=== PATIENT | female | born 1990 | race Caucasian/White ===

== ENCOUNTER 2019-12-01 22:33 | Inpatient (IN) | payer MEDICAID, SELFPAY ==
[~2019-12-01] VITALS: Ht 167.6 cm; Wt 72.6 kg
--- NOTE | 2019-12-01 22:33 | NUR ---
Patient BIBA ALS accompanied by LACoFD, transferred to bed 1. RN evaluating patient at bedside.
[2019-12-01 22:47] VITALS: BP 134/67
--- NOTE | 2019-12-01 23:00 | NUR ---
PT BIB FIRE/DIESEL LUBE TECH AFTER 911 CALL PLACED FOR UNRESPONSIVE FEMALE IN [facility]. PT PRESENTS VERY PARANOID, FRIGHTENED, AND TEARFUL AT TIMES. CURRENTLY NONVERBAL. NO TRAUMA NOTED TO PT. PROBABLE DRUG INTOXICATION/OD. V/S STABLE, RESPIRATIONS REGULAR AND UNLABORED O2 SAT 98%. V/S WNL, PUPILS 3MM AND SLUGGISH. BED IN LOWEST POSITION, SIDE RAIL UP X 1. MED HX - UNKNOWN ALLERGIES - UNKNOWN
--- NOTE | 2019-12-01 23:35 | NUR ---
Telepsychiatry consultation ordered as requested by Dr. Liu.
[2019-12-02 00:16] LABS: BASOPHILS # (AUTO) 0.1 K/uL (0.00-0.22); EOSINOPHILS # (AUTO) 0.1 K/uL (0-0.4); EOSINOPHILS % (AUTO) 1.4 % (0.0-4.0); HEMOGLOBIN 13.7 g/dL (12.0-16.0); LYMPHOCYTES # (AUTO) 1.7 K/uL (2.5-16.5); LYMPHOCYTES % (AUTO) 23.3 % (20.5-51.1); MEAN CORPUSCULAR HEMOGLOBIN 31 pg (27-31); MEAN CORPUSCULAR HGB CONC 34 g/dL (33-37); MEAN CORPUSCULAR VOLUME 91.2 fL (80-94); MONOCYTES # (AUTO) 0.8 K/uL (0.8-1.0); MONOCYTES % (AUTO) 10.6 % (1.7-9.3); NEUTROPHILS # (AUTO) 4.7 K/uL (1.8-7.7); NEUTROPHILS % (AUTO) 63.7 % (42.2-75.2); PLATELET COUNT (AUTO) 219 K/uL (140-450); RED BLOOD CELL COUNT(AUTO) 4.38 MIL/uL (4.20-5.40); RED CELL DISTRIBUTION WIDTH 13.2 % (11.6-13.7); WHITE BLOOD COUNT (AUTO) 7.4 K/uL (4.8-10.8)
--- NOTE | 2019-12-02 00:23 | NUR ---
PT TO CT SCAN VIA WHEELCHAIR
[2019-12-02 00:36] LABS: ANION GAP 16.4 (8-16); ASPARTATE AMINOTRANSFERASE 16 U/L (15-37); CARBON DIOXIDE 27.3 mmol/L (21-32); CHLORIDE 102 mmol/L (98-107); CREATININE 0.8 mg/dL (0.6-1.3); GFR ARICAN-AMERICAN 112 mL/min (>90); GLUCOSE 102 mg/dL (74-106); SODIUM SERUM 143 mmol/L (136-145); TOTAL BILIRUBIN 1.5 mg/dL (0.0-1.0); UREA NITROGEN, BLOOD 11 mg/dL (7-18)
[2019-12-02 00:37] LABS: POTASSIUM 2.7 mmol/L (3.5-5.1)
--- NOTE | 2019-12-02 00:38 | NUR ---
RECIVED REPORT FROM ANJELICA IN LAB. POTASSIUM 2.7. SOLA MADE AWARE.
--- NOTE | 2019-12-02 01:40 | NUR ---
COVID SWAB DONE AND TAKEN TO LAB
--- NOTE | 2019-12-02 01:41 | NUR ---
PT MORE ALERT NOW, ABLE TO ANSWER QUESTIONS AND FOLLOW COMMANDS. PT STATES SHE IS HOMELESS AND HAS BEEN STAYING IN THE [place] WHERE SHE WAS FOUND BY PARAMEDICS. PT DENIES ANY DRUG USE. DENIES MEDICAL HISTORY BUT STATES SHE HAS PTSD. PT URINATED IN THE BED, CLOTHES CHANGED, PT CLEANED AND PLACED IN A GOWN. SANDWICH AND JUICE PROVIDED TO PT. PT WAS ABLE TO PROVIDE HER , SUPPLIED TO ER ADMIN. PT AWARE I NEED A UA, STATES SHE IS NOT ABLE TO GO AT THIS TIME. UA CUP AT BEDSIDE
--- NOTE | 2019-12-02 02:42 | NUR ---
PT SITTING QUIETLY ON GURNEY NO SIGNS OF DISTRESS, STILL UNABLE TO PROVIDE UA
--- NOTE | 2019-12-02 03:10 | NUR ---
DR WOOD FROM TELE-MEDICINE SPOKE WITH PATIENT AND WANTS TO PLACE PT ON A 5150 HOLD FOR GRAVE DISABILITY.
--- NOTE | 2019-12-02 03:50 | NUR ---
[place] [employer] at bedside.
--- NOTE | 2019-12-02 04:39 | NUR ---
Patient transferred to bed 4 for further care. RN re-evaluating patient at bedside.
--- NOTE | 2019-12-02 04:57 | NUR ---
PT WAS ABLE TO PROVIDE A URINE SPECIMEN. URINE COLLECTED AND TAKEN TO LAB
[2019-12-02 05:05] LABS: APPEARANCE,URINE CLEAR (CLEAR); BILIRUBIN,URINE NEGATIVE (NEGATIVE); BLOOD, URINE NEGATIVE (NEGATIVE); COLOR,URINE YELLOW (YELLOW); LEUKOCYTE ESTERASE ,URINE TRACE (NEGATIVE); NITRITE, URINE NEGATIVE (NEGATIVE); UGLUCOSE NEGATIVE (NEGATIVE)
[2019-12-02 05:29] LABS: RBC,URINE 0-5 /HPF (0-5); WBC,URINE 0-5 /HPF (0-5)
[2019-12-02 05:32] LABS: BARBITURATE, URINE NEGATIVE ng/ml (NEG <=200); BENZODIAZEPINE, URINE NEGATIVE ng/mL (NEG <=200); CANNABINOID, URINE POSITIVE ng/mL (NEG <=50); COCAINE, URINE NEGATIVE ng/mL (NEG <=300); OPIATE, URINE NEGATIVE ng/mL (NEG <=2000); PHENCYCLIDINE SCREEN,URINE NEGATIVE ng/mL (NEG <=25)
--- NOTE | 2019-12-02 05:45 | NUR ---
PTS BELONGINGS GIVEN TO SECURTIY (BRA, UNDERWARE, JEANS, SHIRT, AND SHOES) CLOTHING IS URINE SOAKED
--- NOTE | 2019-12-02 05:53 | NUR ---
PT SLEEPING, NO SIGNS OF DISTRESS NOTED, RESPIRATIONS REGULAR AND UNLABORED. PT REMAINS ON 15 MIN CHECKS.
--- NOTE | 2019-12-02 06:26 | NUR ---
Patient transferred to bed 5 for further care. RN re-evaluating the patient at bedside.
--- NOTE | 2019-12-02 07:11 | NUR ---
received report from john santizo , pt sleeping in be side rails up x2 and lock.
--- NOTE | 2019-12-02 07:13 | NUR ---
REPORT GIVEN TO ROLANDA MA
--- NOTE | 2019-12-02 07:33 | NUR ---
pt awake aox3 , afibrile , no complaints at this time.
--- NOTE | 2019-12-02 07:40 | NUR ---
pt verbalize dont want to eat food and states she not hungry .
--- NOTE | 2019-12-02 08:06 | NUR ---
pt awake in bed offered food stated she not hungry and wanted breakfast at bedside .
--- NOTE | 2019-12-02 09:15 | NUR ---
pt awake in bed staring in the ceiling with no complaint.side rails up x2 at lowest position.
--- NOTE | 2019-12-02 09:44 | NUR ---
FACILITIES CONTACTED BY [facility]: [facility]- [facility]- [facility]- [place]- [place]- [place]- [place]-
[2019-12-02] MEDS ORDERED: MAG SULF 2000 MG/WATER PREMIX 50 ML IV ONE (09:45)
[2019-12-02] MEDS ORDERED: POTASSIUM CHLORIDE 10 MEQ TABER PO ONE (09:45)
--- NOTE | 2019-12-02 10:11 | NUR ---
pt hook to registered nurse cardiac telemetry. pt awake in bed eating breakfast . side rails up x 1 and lock.
--- NOTE | 2019-12-02 10:33 | NUR ---
pt states she does not take any home medications
--- NOTE | 2019-12-02 12:07 | NUR ---
PT SITTING IN BED COMFORTABLY , SITTER AT BEDSIDE.
--- NOTE | 2019-12-02 13:29 | NUR ---
SITTER AT BEDSIDE .
[2019-12-02] MEDS ORDERED: ONDANSETRON 4 MG/2 ML VIAL IM/IVP PRN (13:40)
[2019-12-02] MEDS ORDERED: ACETAMINOPHEN 325 MG TAB PO PRN (13:40)
[2019-12-02] MEDS ORDERED: DOCUSATE SODIUM 100 MG GELCAP PO PRN (13:40)
--- NOTE | 2019-12-02 13:56 | NUR ---
PER JUANITA MARIE SUP. - NO [facility] BEDS AVAILABLE AT THIS TIME
--- NOTE | 2019-12-02 13:58 | NUR ---
XRAY AT BEDSIDE.
--- NOTE | 2019-12-02 13:59 | NUR ---
LABS AT BEDSIDE.
--- NOTE | 2019-12-02 14:05 | NUR ---
DR LAZARO AT BEDSIDE EVALUATING PT.
[2019-12-02 14:36] LABS: FREE T4 (FREE THYROXINE) 1.5 ng/dL (0.76-1.46); MAGNESIUM 2.2 mg/dL (1.8-2.4); PHOSPHORUS 4.1 mg/dL (2.5-4.9); THYROID STIMULATING HORMONE 2.24 uIU/mL (0.34-3.74)
[2019-12-02 15:20] LABS: ANION GAP 15.6 (8-16); CARBON DIOXIDE 26.2 mmol/L (21-32); CREATININE 0.8 mg/dL (0.6-1.3); POTASSIUM 3.8 mmol/L (3.5-5.1)
[2019-12-02 15:25] LABS: PROTHROMBIN TIME 10.7 secs (10.8-13.4)
--- NOTE | 2019-12-02 15:41 | NUR ---
DR LAZARO AT BEDSIDE REEVALUATING PT.
--- NOTE | 2019-12-02 16:50 | NUR ---
PER JUANITA MARIE SUP. - ROOMS & NURSES ARE AVAILABLE BUT PT WILL REMAIN M/S HOLD UNTIL FURTHER NOTICE DUE TO LACK OF RNS SCHEDULED FOR INSPECTOR AND CLERK.
[2019-12-02] MEDS: NACL 0.9% 1,000 ML IV SCH (17:07)
--- NOTE | 2019-12-02 19:17 | NUR ---
report given to nessa lopez with stable v/s.
--- NOTE | 2019-12-02 19:17 | NUR ---
REPORT RECEIVED FROM FIFI RN, PT ALERT AND AWAKE, BREATHING EVEN AND UNLABORED
--- NOTE | 2019-12-02 19:24 | NUR ---
PT SCREAMING AT STAFF, PULLED OUT HER IV. ERMD MADE AWARE
--- NOTE | 2019-12-02 19:30 | NUR ---
PT CALMED DOWN, GOWN CHANGED BECAUSE OF BLOOD FROM IV. SITTER REMAINS AT BEDSIDE, WILL CONTINUE TO MONITOR
--- NOTE | 2019-12-02 20:29 | NUR ---
PT RESTING WTIH EYES CLOSED, BREATHING EVEN AND UNLABORED
--- NOTE | 2019-12-02 21:13 | NUR ---
PT RESTING WITH EYES CLOSED, BREATHING EVEN AND UNLABORED
--- NOTE | 2019-12-02 21:56 | NUR ---
[facility] has sent out intake paperwork to the following facilities for bed placement. [facility]/ [facility]/ [facility]/ [facility]/ [place]/ [place] No bed availability through the evening, will keep facility informed of any updates.
--- NOTE | 2019-12-02 22:51 | NUR ---
PT ALERT AND AWAKE, BREATHING EVEN AND UNLABORED
--- NOTE | 2019-12-02 23:08 | NUR ---
PT WILL BE ADMITTED TO MED/SURG. PER JUANITA JULIO PT WILL BE AN ER HOLD FOR THE MEANTIME.
--- NOTE | 2019-12-02 23:52 | NUR ---
PT RESTING WITH EYES CLOSED, BREATHING EVEN AND UNLABORED. WILL CONTINUE TO MONITOR
--- NOTE | 2019-12-03 01:34 | NUR ---
PT RESTING WITH EYES CLOSED, BREATHING EVEN AND UNLABORED
--- NOTE | 2019-12-03 03:30 | NUR ---
PT RESTING WITH EYES CLOSED, BREATHING EVEN AND UNLABORED
--- NOTE | 2019-12-03 05:00 | NUR ---
PT RESTING WITH EYES CLOSED, BREATHING EVEN AND UNLABORED
--- NOTE | 2019-12-03 06:21 | NUR ---
Will endorse to next shift
[2019-12-03] MEDS: NACL 0.9% 1,000 ML IV SCH ×2 (06:33→22:57)
--- NOTE | 2019-12-03 06:49 | NUR ---
PT RESTING WITH EYES CLOSED, BREATHING EVEN AND UNLABORED
[2019-12-03 07:18] LABS: BASOPHILS % (AUTO) 0.2 % (0.0-2.0); EOSINOPHILS # (AUTO) 0.2 K/uL (0-0.4); EOSINOPHILS % (AUTO) 2.4 % (0.0-4.0); HEMATOCRIT 39.5 % (36-48); HEMOGLOBIN 13.3 g/dL (12.0-16.0); LYMPHOCYTES # (AUTO) 1.3 K/uL (2.5-16.5); LYMPHOCYTES % (AUTO) 16.1 % (20.5-51.1); MEAN CORPUSCULAR HEMOGLOBIN 31 pg (27-31); MEAN CORPUSCULAR HGB CONC 34 g/dL (33-37); MEAN CORPUSCULAR VOLUME 92.3 fL (80-94); MONOCYTES # (AUTO) 0.5 K/uL (0.8-1.0); MONOCYTES % (AUTO) 6.2 % (1.7-9.3); NEUTROPHILS # (AUTO) 5.9 K/uL (1.8-7.7); NEUTROPHILS % (AUTO) 75.1 % (42.2-75.2); PLATELET COUNT (AUTO) 224 K/uL (140-450); RED BLOOD CELL COUNT(AUTO) 4.28 MIL/uL (4.20-5.40); RED CELL DISTRIBUTION WIDTH 13.2 % (11.6-13.7); WHITE BLOOD COUNT (AUTO) 7.8 K/uL (4.8-10.8)
[2019-12-03 07:22] LABS: ANION GAP 11.9 (8-16); CARBON DIOXIDE 27.5 mmol/L (21-32); CREATININE 0.8 mg/dL (0.6-1.3); POTASSIUM 3.4 mmol/L (3.5-5.1)
[2019-12-03 07:28] LABS: MAGNESIUM 2.1 mg/dL (1.8-2.4); PHOSPHORUS 3.7 mg/dL (2.5-4.9)
[2019-12-03 07:45] VITALS: BP 121/77
--- NOTE | 2019-12-03 07:45 | NUR ---
RECEIVED PATIENT FROM ED NURSE FOR ADMISSION AND CONTINUITY OF CARE. PATIENT IS AAOX3. MONGOLIAN SPEAKING. RESPIRATIONS EVEN AND UNLABORED, ROOM AIR. VISIBLE CHEST RISE AND FALL NOTED. MED-SURG. ABDOMEN SOFT AND NONTENDER. REGULAR DIET. SKIN WARM, DRY, AND INTACT. IV IN THE R AC G20, SALINE LOCK. WILL RUN NS AT 60 ML/HR PER MD ORDER. PATIENT IS AMBULATORY. UNIVERSAL FALL PRECAUTION. ON A 5150 HOLD. 1:1 SITTER. BED IN LOW POSITION. CALL LIGHT IS WITHIN REACH. WILL CONTINUE TO MONITOR.
--- NOTE | 2019-12-03 07:50 | NUR ---
[facility] NARES SWAB COLLECTED. VS: BP IS 121/77, HR 79, RESP 16 UNLABORED, TEMP 97.6, O2SAT 98%. DENIES PAIN. DENIES SOB. IVF NS 1000 ML AT 60 ML/HR STARTED RUNNING.
--- NOTE | 2019-12-03 07:51 | NUR ---
Patient will be admitted to care of [facility]. AdmitTed to MED SURG. Will go to room 129A. Belongings list completed. Report to PRINCESS MA.
--- NOTE | 2019-12-03 08:09 | NUR ---
[facility] still working on placement at this time. Packets have been referred to the following facilities: [facility]
--- NOTE | 2019-12-03 09:31 | NUR ---
HUNG ROCEPHIN FOR UTI VIA IVPB. EXPLAINED MEDICATION. PATIENT IS RESTING IN BED. NO SIGNS OF DISTRESS NOTED. WILL CONTINUE TO MONITOR.
--- NOTE | 2019-12-03 10:29 | NUR ---
PATIENT IS YELLING AND WALKING AROUND THE ROOM. 1:[address]
--- NOTE | 2019-12-03 13:12 | NUR ---
ENCOURAGED PATIENT TO EAT LUNCH. PATIENT IGNORED AND WENT BACK TO SLEEP. 1:[address]
--- NOTE | 2019-12-03 14:38 | NUR ---
GIVEN K-DUR 40 MEQ PO FOR POTASSIUM LEVEL 3.4. GIVEN MEDICATION EDUCATION. PATIENT TOLERATED WELL.
--- NOTE | 2019-12-03 14:46 | NUR ---
PATIENT STATED SHE IS COLD. COVERED WITH BLANKET. TEMPERATURE: 98.3. NO FEVER. SET UP LUNCH TRAY. PATIENT STATED SHE WILL EAT
[2019-12-03] MEDS ORDERED: POTASSIUM CHLORIDE 10 MEQ TABER PO SCH (15:00)
[2019-12-03 16:00] VITALS: BP 116/79
--- NOTE | 2019-12-03 17:25 | NUR ---
PATIENT IS SLEEPING COMFORTABLY. NO SIGNS OF DISTRESS NOTED. BED IN LOW POSITION. CALL LIGHT IS WITHIN REACH. WILL CONTINUE TO MONITOR
--- NOTE | 2019-12-03 19:12 | NUR ---
ENDORSED PATIENT TO THE PRINTED CIRCUIT DESIGNER NURSE FOR CONTINUITY OF CARE. PATIENT IS ASLEEP. NO SIGNS OF DISTRESS NOTED. IS IN STABLE CONDITION.
--- NOTE | 2019-12-03 19:13 | NUR ---
RECEIVED BEDSIDE REPORT FROM DAY SHIFT NURSE. PATIENT IS AAOX3. KHMER SPEAKING. RESPIRATIONS EVEN AND UNLABORED, ROOM AIR. VISIBLE CHEST RISE AND FALL NOTED. ABDOMEN SOFT AND NONTENDER. SKIN WARM, DRY, AND INTACT. IV SITE ON THE R AC G20, PATENT, INTACT, AND ASYMPTOMATIC. ON A 5150 HOLD. 1:1 SITTER. BED IN LOW POSITION. CALL LIGHT IS WITHIN REACH. WILL CONTINUE TO MONITOR.
[2019-12-03] MEDS: OLANZapine 5 MG TAB PO SCH (21:12)
--- NOTE | 2019-12-03 21:12 | NUR ---
GIVEN OLANZAPINE MD ORDERED. PT TOLERATED WELL.
--- NOTE | 2019-12-03 22:41 | NUR ---
PT SLEEPING IN BED COMFORTABLY. NO ACUTE DISTRESS NOTED.
[2019-12-04] VITALS: BP 103/58
--- NOTE | 2019-12-04 00:01 | NUR ---
VS CHECKED, WITHIN PT'S BASELINE. WILL CONTINUE TO MONITOR.
--- NOTE | 2019-12-04 02:38 | NUR ---
PT SLEEPING IN BED COMFORTABLY. NO ACUTE DISTRESS NOTED.
--- NOTE | 2019-12-04 04:28 | NUR ---
PT SLEEPING IN BED COMFORTABLY. NO ACUTE DISTRESS NOTED.
--- NOTE | 2019-12-04 07:15 | NUR ---
RECEIVED REPORT FROM ASSEMBLER DC FIELD YOKE NURSE. PATIENT LYING DOWN IN BED SLEEPING, AROUSABLE BY VOICE. NO DISTRESS NOTED. DENIES ANY PAIN. AAOX2, CALM, COOPERATIVE, SKIN COLOR APPROPRIATE TO ETHNICITY, WARM TO TOUCH. SKIN INTACT. RESPIRATIONS EVEN, UNLABORED, ON ROOM AIR. IV SITE INTACT, PATENT, AND INFUSING IVF PER MD ORDERS. REVIEWED PLAN OF CARE WITH PATIENT. PATIENT VERBALIZED UNDERSTANDING. SAFETY MEASURES IN PLACE, CALL LIGHT WITHIN REACH. WILL CONTINUE TO MONITOR.
[2019-12-04 08:00] VITALS: BP 114/74
[2019-12-04 08:05] LABS: BASOPHILS # (AUTO) 0.1 K/uL (0.00-0.22); EOSINOPHILS # (AUTO) 0.2 K/uL (0-0.4); EOSINOPHILS % (AUTO) 3.3 % (0.0-4.0); HEMATOCRIT 38.1 % (36-48); HEMOGLOBIN 12.7 g/dL (12.0-16.0); LYMPHOCYTES # (AUTO) 1.4 K/uL (2.5-16.5); LYMPHOCYTES % (AUTO) 21.8 % (20.5-51.1); MEAN CORPUSCULAR HEMOGLOBIN 31 pg (27-31); MEAN CORPUSCULAR HGB CONC 33 g/dL (33-37); MEAN CORPUSCULAR VOLUME 93.4 fL (80-94); MONOCYTES # (AUTO) 0.5 K/uL (0.8-1.0); NEUTROPHILS # (AUTO) 4.3 K/uL (1.8-7.7); NEUTROPHILS % (AUTO) 65.9 % (42.2-75.2); PLATELET COUNT (AUTO) 203 K/uL (140-450); RED BLOOD CELL COUNT(AUTO) 4.08 MIL/uL (4.20-5.40); RED CELL DISTRIBUTION WIDTH 13.2 % (11.6-13.7); WHITE BLOOD COUNT (AUTO) 6.5 K/uL (4.8-10.8)
[2019-12-04 08:19] LABS: ANION GAP 10.5 (8-16); CARBON DIOXIDE 26.4 mmol/L (21-32); CREATININE 0.7 mg/dL (0.6-1.3); POTASSIUM 3.9 mmol/L (3.5-5.1)
[2019-12-04 08:21] LABS: MAGNESIUM 1.9 mg/dL (1.8-2.4); PHOSPHORUS 3.6 mg/dL (2.5-4.9)
--- NOTE | 2019-12-04 09:15 | NUR ---
PATIENT HAS BEEN SCREENED AND CATEGORIZED LOW NUTRITION RISK. PATIENT WILL BE SEEN WITHIN 7 DAYS OF ADMISSION. 12/09/[address]
--- NOTE | 2019-12-04 09:26 | NUR ---
SCHEDULED MEDICATIONS DUE GIVEN. WILL CONTINUE TO MONITOR.
--- NOTE | 2019-12-04 11:11 | NUR ---
DISCHARGE PLANNING: THIS IS A 29 Y/O HOMELESS FEMALE, BIBA DUE TO BREAKDOWN. PATIENT WAS FOUND ACTING ODDLY IN THE COURTYARD OF THE [employer]. INITIAL DIAGNOSIS OF GRAVE DISABILITY. CURRENT LABS INCLUDE WBC 6.5, H/H 12.7/38.1, NA/K 140/3.9, BUN/CREA 8/0.7. COVID TEST PENDING. UDS SHOWED POSITIVE FOR AMPHETAMINES AND CANNABINOIDS. ON ZYPREXA. PSYCH CONSULT IN PLACE. FOR IN PATIENT PSYCH PLACEMENT. Addendum: 12/04/19 at 1233 by Sarah Barksdale CM [facility] [employer] AT [facility], THEY ARE STILL WORKING ON FINDING PLACEMENT FOR THE PATIENT. Addendum: 12/04/19 at 1445 by Sarah Barksdale CM [facility], MOST OF THE PSYCHE FACILITIES REQUIRE [address] GOINS MADE AWARE. Addendum: 12/05/19 at 1409 by Sarah Barksdale DISCUSSED DC PLAN WITH DR BAIRD. INFORMED HIM THAT THERE IS NO ACCEPTING FACILITY YET. HE STATED HE WILL EVALUATE THE PATIENT AND WILL LET ME KNOW THE PLAN. Addendum: 12/05/19 at 1416 by Sarah Barksdale CM RECEIVED A CALL FROM DR. BAIRD THAT HE CLEARED THE PATIENT AND WILL DISCHARGE. HE STATED TO PROVIDE HOMELESS/PRISON RESOURCES TO THE PATIENT. RESOURCES PROVIDED TO THE PRIMARY RN.
--- NOTE | 2019-12-04 11:30 | NUR ---
PATIENT SITTING IN BED WITH LUNCH TRAY IN FRONT. NO DISTRESS NOTED. CONDITION UNCHANGED. WILL CONTINUE T OMONITOR
--- NOTE | 2019-12-04 12:58 | NUR ---
DATA COLLECTION TECHNICIAN NOTE: Patient's Orientation Person Situation Place Time Information Provided By PATIENT Comments SW WAS UNABLE TO MEET PATIENT AT BEDSIDE DUE TO MEDICAL CONDITION. ASSESSMENT WAS COMPLETED TELEPHONICALLY. Composition Mixer, Realtionship and Phone Number SUZY DIAZ [phone] [facility] Power of Industrial Safety And Health Specialist No Does Patient Have a POLST No Identifying Problems Homelessness/Housing Substance Abuse Is A Social Work Consult Needed No Mandate Report Filed No Explanation Of Identifying Problems PATIENT IS A 29-YEAR-OLD FEMALE ADMITTED FOR GRAVE DISABILITY. PATIENT HAS NO PERTINENT PMHX. PATIENT REFUSED SUBSTANCE ABUSE RESOURCES BUT AGREED TO HOMELESS RESOURCES. HOMELESS RESOURCES WAS PROVIDED TO PATIENT AND WAS LEFT IN DISCHARGE PACKET. PATIENT STATED SHE WAS LAST AT A SOBER LIVING HOUSE, BUT REFUSES TO GO BACK. PATIENT STATED SHE HAS BEEN HOMELESS FOR ONE MONTH. PATIENT STATED SHE WOULD MAKE LIVING ARRANGEMENTS USING HOMELESS RESOURCES PROVIDED. Admitted From HOMELESS Prior Resources/Services Used In Last 12 Months No Prior Resources Used Prior DME No Prior DME Used Living Situation Homeless Patient Had Caregiver No Home Support No Caregiver Issues Financial Issues No Known Financial Issue Referral To The Financial Counselor Needed No Factors/Needs Psych Placement/Referral Jail/Homeless Pt/Rep Participated In Discharge Plan Yes Patient/Family Agress With Discharge Plan Yes Discharge Plan Comments TENTATIVE DISCHARGE PLAN IS FOR PATIENT TO BE DISCHARGED TO PSYCHIATRIC FACILITY PENDING PATIENT'S PSYCH EVAL. DC Plan Status Initiated
--- NOTE | 2019-12-04 14:00 | NUR ---
PATIENT LYING DOWN IN BED SLEEPING, AROUSABLE BY VOICE. NO DISTRESS NOTED. CONDITION UNCHANGED. WILL CONTINUE TO MONITOR.
--- NOTE | 2019-12-04 14:02 | NUR ---
Called the following facilities: [facility] s/w Leonora, not accepting any referrals from out of [facility] s/w Maurisio, no beds [place] [facility] [place], no answer, left voicemail [facility] s/w Gloria, will fax packet once [phone] is received Hoang Hernandez no answer. Left voicemail on [employer] machine for a call back [facility] s/w Alissa no available beds [facility] s/w Ana Paula no available beds
[2019-12-04 16:00] VITALS: BP 107/67
--- NOTE | 2019-12-04 17:30 | NUR ---
PATIENT WATCHING TV. NO DISTRESS NOTED. CONDITION UNCHANGED. WILL CONTINUE TO MONITOR
--- NOTE | 2019-12-04 19:04 | NUR ---
Packet faxed for [facility] and [facility] for wait list
--- NOTE | 2019-12-04 19:18 | NUR ---
GAVE REPORT TO FIRE INSPECTOR NURSE FOR CONTINUITY OF CARE. PATIENT IN STABLE CONDITION.
--- NOTE | 2019-12-04 19:30 | NUR ---
RECEIVED PT FROM PRASAD RN ,PT [phone] HOLD FOR GRAVELY DISABLE NOT AGITATION NOTED AT THIS TIME PT QUIET INITIAL ASSESSMENT DONE
[2019-12-04] MEDS: OLANZapine 5 MG TAB PO SCH (21:00)
--- NOTE | 2019-12-04 22:00 | NUR ---
pt has been monitoring close 5150 hold sitter at side not distress noted ambulatory
[2019-12-04] MEDS: NACL 0.9% 1,000 ML IV SCH (22:57)
[2019-12-05] VITALS: BP 103/64
--- NOTE | 2019-12-05 01:00 | NUR ---
pt sleeping well sitter at side not distress noted on continue mo;nitoring
--- NOTE | 2019-12-05 04:00 | NUR ---
sponge bath given linen changed not distress noted
[2019-12-05 06:07] LABS: CHLAMYDIA TRACHOMATIS AMP DNA Negative (Negative)
--- NOTE | 2019-12-05 06:36 | NUR ---
pt sleeping at this time sitter at side, pt will be endorsed to day shift nurse for continue of care
--- NOTE | 2019-12-05 07:28 | NUR ---
RECEIVED PATIENT FROM NIGHT NURSE. PATIENT IS SLEEPING. RESP EVEN AND UNLABORED ON ROOM AIR. SAFETY PRECAUTION OBSERVED. 1:1 SITTER BY BEDSIDE. NO NOTED DISTRESS. WILL CONTINUE TO MONITOR.
[2019-12-05 08:00] VITALS: BP 105/72
[2019-12-05 08:46] LABS: BASOPHILS % (AUTO) 0.6 % (0.0-2.0); EOSINOPHILS # (AUTO) 0.3 K/uL (0-0.4); EOSINOPHILS % (AUTO) 4.7 % (0.0-4.0); HEMATOCRIT 37.8 % (36-48); HEMOGLOBIN 12.8 g/dL (12.0-16.0); LYMPHOCYTES # (AUTO) 1.5 K/uL (2.5-16.5); LYMPHOCYTES % (AUTO) 26.7 % (20.5-51.1); MEAN CORPUSCULAR HEMOGLOBIN 31 pg (27-31); MEAN CORPUSCULAR HGB CONC 34 g/dL (33-37); MEAN CORPUSCULAR VOLUME 92.7 fL (80-94); MONOCYTES # (AUTO) 0.4 K/uL (0.8-1.0); MONOCYTES % (AUTO) 7.8 % (1.7-9.3); NEUTROPHILS # (AUTO) 3.3 K/uL (1.8-7.7); NEUTROPHILS % (AUTO) 60.2 % (42.2-75.2); PLATELET COUNT (AUTO) 204 K/uL (140-450); RED BLOOD CELL COUNT(AUTO) 4.08 MIL/uL (4.20-5.40); RED CELL DISTRIBUTION WIDTH 13.3 % (11.6-13.7); WHITE BLOOD COUNT (AUTO) 5.5 K/uL (4.8-10.8)
[2019-12-05 08:54] LABS: MAGNESIUM 1.9 mg/dL (1.8-2.4); PHOSPHORUS 3.7 mg/dL (2.5-4.9)
--- NOTE | 2019-12-05 08:54 | NUR ---
Received followup call from [facility], states they will hold packet but have no openings today. Will continue to look for placement. Will contact with any updates.
[2019-12-05 08:59] LABS: CARBON DIOXIDE 26.7 mmol/L (21-32); CREATININE 0.8 mg/dL (0.6-1.3); POTASSIUM 3.7 mmol/L (3.5-5.1)
--- NOTE | 2019-12-05 09:30 | NUR ---
MAKING ROUNDS. PATIENT IS RESTING COMFORTABLY IN BED. ALERT AND ORIENTED X4. DENIES OF PAIN AT THIS TIME. RESP EVEN AND UNLABORED ON RA. RAC 20 TKO WITH NS 10ML. PATIENT DENIES OF SUICIDAL IDEATIONS AT THIS TIME. 1:1 SITTER AT BEDSIDE. PATIENT ENCOURAGED TO ASK FOR HELP NEEDED. PATIENT VERBALIZED UNDERSTANDING. WILL CONTINUE TO MONITOR.
[2019-12-05 11:09] LABS: RAPID PLASMA REAGIN NON-REACTIVE (Non Reactiv)
--- NOTE | 2019-12-05 12:50 | NUR ---
PATIENT IS RESTING COMFORTABLY IN BED. NO NOTED DISTRESS. RESP EVEN AND UNLABORED ON ROOM AIR. 1:1 SITTER BY BEDSIDE. WILL CONTINUE TO MONITOR.
[2019-12-05 16:00] VITALS: BP 112/87
--- NOTE | 2019-12-05 16:10 | NUR ---
DR BAIRD DISCONTINUE 5150 HOLD. PATIENT IS ABLE TO SHOWER PER DR GOINS. PATIENT AMBULATED TO THE SHOWER WITH STEADY GAIT. NO NOTED DISTRESS. WILL CONTINUE TO MONITOR.
--- NOTE | 2019-12-05 17:00 | NUR ---
TRANSFER CARE TO [facility]. PATIENT IN STABLE CONDITION.
--- NOTE | 2019-12-05 18:12 | NUR ---
GIVEN DISCHARGE INSTRUCTIONS AND BUS PASS. DC IV SITE.
--- NOTE | 2019-12-05 18:15 | NUR ---
PATIENT STATED SHE WILL BE GOING TO HER MOTHER'S HOUSE. BUS PASS ON HAND.
--- NOTE | 2019-12-05 18:18 | NUR ---
DISCONTINUED IV SITE AND REMOVED ID BAND. FELISA MILAN, WALKED PATIENT TO THE LOBBY. PATIENT IS IN STABLE CONDITION
== END 2019-12-05 18:20 | disposition home or self-care (01) | DRG 776 ==
LOC: EEVIPCON 22:33 → MED 22:33 → EDBD 22:33 → MTU 12-02 13:37 → MMU 12-03 05:58
PROVIDERS: ADMIT General Practice; ATTEND General Practice
DX: F19.10 Other psychoactive substance abuse, uncomplicated (principal); G92 Toxic encephalopathy; T43.621A Poisoning by amphetamines, accidental (unintentional), initial encounter; F15.129 Other stimulant abuse with intoxication, unspecified; N39.0 Urinary tract infection, site not specified; E87.6 Hypokalemia; F20.2 Catatonic schizophrenia; E80.6 Other disorders of bilirubin metabolism; E05.90 Thyrotoxicosis, unspecified without thyrotoxic crisis or storm; Y92.89 Other specified places as the place of occurrence of the external cause; F12.10 Cannabis abuse, uncomplicated; Z20.828 Contact with and (suspected) exposure to other viral communicable diseases
CPT/HCPCS: 36415; 70450; 71045; 80048; 80053; 80305; 81001; 81025; 82140; 83036; 83615; 83735; 83880; 84100; 84134; 84439; 84443; 84484; 85025; 85610; 85730; 86592; 87081; 87086; 87186; 87491; 96361; 96365; 96367; 99285; G0482; J0696; J3475; J7030; J7060; Q0092; U0003-CS

== ENCOUNTER 2021-02-10 13:50 | Emergency (ER) | payer MEDICAID, SELFPAY ==
[~2021-02-10] VITALS: Ht 165.1 cm; Wt 54.4 kg
[2021-02-10 13:54] VITALS: BP 145/50
--- NOTE | 2021-02-10 14:12 | NUR ---
Patient being evaluated by physician at bedside.
[2021-02-10] MEDS ORDERED: NACL 0.9% 1,000 ML IV ONE (14:20)
[2021-02-10] MEDS ORDERED: ONDANSETRON 4 MG/2 ML VIAL IVP ONE (14:20)
[2021-02-10 15:19] LABS: BASOPHILS % (AUTO) 0.9 % (0.0-2.0); EOSINOPHILS % (AUTO) 0.7 % (0.0-4.0); HEMATOCRIT 39.9 % (36-48); HEMOGLOBIN 13.2 g/dL (12.0-16.0); LYMPHOCYTES # (AUTO) 1.1 K/uL (2.5-16.5); LYMPHOCYTES % (AUTO) 30.8 % (20.5-51.1); MEAN CORPUSCULAR HEMOGLOBIN 29 pg (27-31); MEAN CORPUSCULAR HGB CONC 33 g/dL (33-37); MEAN CORPUSCULAR VOLUME 86.3 fL (80-94); MONOCYTES # (AUTO) 0.6 K/uL (0.8-1.0); MONOCYTES % (AUTO) 16.5 % (1.7-9.3); NEUTROPHILS # (AUTO) 1.9 K/uL (1.8-7.7); NEUTROPHILS % (AUTO) 51.1 % (42.2-75.2); PLATELET COUNT (AUTO) 190 K/uL (140-450); RED BLOOD CELL COUNT(AUTO) 4.62 MIL/uL (4.20-5.40); RED CELL DISTRIBUTION WIDTH 15.9 % (11.6-13.7); WHITE BLOOD COUNT (AUTO) 3.7 K/uL (4.8-10.8)
[2021-02-10] MEDS ORDERED: ONDA-24 PO (15:20)
[2021-02-10] MEDS ORDERED: NALO4SPR NS (15:20)
[2021-02-10 15:38] LABS: ALBUMIN 3.5 g/dL (3.4-5.0); ANION GAP 9.1 (8-16); ASPARTATE AMINOTRANSFERASE 117 U/L (15-37); CHLORIDE 105 mmol/L (98-107); CREATININE 0.8 mg/dL (0.6-1.3); GFR ARICAN-AMERICAN 107 mL/min (>90); GLUCOSE 101 mg/dL (74-106); POTASSIUM 4.1 mmol/L (3.5-5.1); SODIUM SERUM 140 mmol/L (136-145); TOTAL BILIRUBIN 0.4 mg/dL (0.0-1.0); UREA NITROGEN, BLOOD 14 mg/dL (7-18)
[2021-02-10 15:59] VITALS: BP 130/52
--- NOTE | 2021-02-10 15:59 | NUR ---
Patient discharged with v/s stable. Written and verbal after care instructions given and explained. Patient alert, oriented and verbalized understanding of instructions. Ambulatory with steady gait. All questions addressed prior to discharge. ID band removed. Patient advised to follow up with PMD. Rx of ZOFRAN, Narcan given. Patient educated on indication of medication including possible reaction and side effects. Opportunity to ask questions provided and answered. Homeless meal given.
== END 2021-02-10 15:59 | disposition home or self-care (01) ==
LOC: MED 13:50
DX: T40.1X1A Poisoning by heroin, accidental (unintentional), initial encounter (principal); R55 Syncope and collapse; Y92.89 Other specified places as the place of occurrence of the external cause
CPT/HCPCS: 36415; 80053; 85025; 96361; 96374; 99283; G0482; J2405; J7030